=== PATIENT | female | born 1950 | race African-American/Black ===

== ENCOUNTER 2019-12-11 09:28 | Outpatient (CLI) | payer MEDICARE, SELFPAY ==
--- NOTE | 2019-12-11 10:00 | NEURO_ITS ---
Patient Number: [id number] Impression: # Complains of numbness of hands. # Bilateral ulnar neuropathy across the elbow. # Evolving Carpal Tunnel Syndrome. # Normal needle/EMG exam. Nerve Conduction Studies Anti Sensory Summary Table Stim Site NR Peak (ms) P-T Amp (?V) Site1 Site2 Delta-P (ms) Dist (cm) Francisco (m/s) Left Median Anti Sensory (2-3nd Digit) Wrist 3.4 7.2 Wrist 2-3nd Digit 3.4 14.0 41 Wrist 3.2 22.8 Wrist 2-3nd Digit 3.4 14.0 41 Right Median Anti Sensory (2-3nd Digit) Wrist 3.5 15.1 Wrist 2-3nd Digit 3.5 14.0 40 Wrist 3.6 24.9 Wrist 2-3nd Digit 3.5 14.0 40 Left Radial Anti Sensory (Base 1st Digit) Wrist 3.1 5.1 Wrist Base 1st Digit 3.1 0.0 Right Radial Anti Sensory (Base 1st Digit) Wrist 2.7 5.6 Wrist Base 1st Digit 2.7 0.0 Left Ulnar Anti Sensory (5th Digit) Wrist 2.9 22.1 Wrist 5th Digit 2.9 14.0 48 Right Ulnar Anti Sensory (5th Digit) Wrist 2.8 14.0 Wrist 5th Digit 2.8 14.0 50 Motor Summary Table Stim Site NR Onset (ms) O-P Amp (mV) Site1 Site2 Delta-0 (ms) Dist (cm) Francisco (m/s) Left Median Motor (Abd Poll Brev) Wrist 4.1 3.7 Elbow Wrist 5.1 31.0 61 Elbow 9.2 1.9 Right Median Motor (Abd Poll Brev) Wrist 4.1 3.6 Elbow Wrist 5.0 31.0 62 Elbow 9.1 2.2 Left Ulnar Motor (Abd Dig Minimi) Wrist 3.3 3.2 A Elbow Wrist 6.0 31.0 52 A Elbow 9.3 2.4 B Elbow Wrist 4.0 23.0 58 B Elbow 7.3 2.5 Right Ulnar Motor (Abd Dig Minimi) Wrist 3.3 3.2 A Elbow Wrist 6.1 32.0 52 A Elbow 9.4 2.2 B Elbow Wrist 4.3 22.0 51 B Elbow 7.6 2.0 F Wave Studies NR F-Lat (ms) L-R F-Lat (ms) Left Median (Mrkrs) (Abd Poll Brev) 29.67 0.72 Right Median (Mrkrs) (Abd Poll Brev) 28.95 0.72 Left Ulnar (Mrkrs) (Abd Dig Min) 29.87 1.86 Right Ulnar (Mrkrs) (Abd Dig Min) 28.01 1.86 EMG Side Muscle Nerve Root Ins Act Fibs Amp Dur Recrt Comment Right 1stDorInt Ulnar C8-T1 Nml Nml Nml Nml Nml Right Ext Indicis Radial (Post Int) C7-8 Nml Nml Nml Nml Nml Right Ext Digitorum Radial (Post Int) C7-8 Nml Nml Nml Nml Nml Right BrachioRad Radial C5-6 Nml Nml Nml Nml Nml Right PronatorTeres Median C6-7 Nml Nml Nml Nml Nml Right Abd Poll Brev Median C8-T1 Nml Nml Nml Nml Nml Left 1stDorInt Ulnar C8-T1 Nml Nml Nml Nml Nml Left Ext Indicis Radial (Post Int) C7-8 Nml Nml Nml Nml Nml Left Ext Digitorum Radial (Post Int) C7-8 Nml Nml Nml Nml Nml Left BrachioRad Radial C5-6 Nml Nml Nml Nml Nml Left PronatorTeres Median C6-7 Nml Nml Nml Nml Nml Left Abd Poll Brev Median C8-T1 Nml Nml Nml Nml Nml MTDD
== END 2019-12-11 09:29 | disposition home or self-care (01) ==
PROVIDERS: Visit Provider Orthopaedic Surgery
DX: G56.03 Carpal tunnel syndrome, bilateral upper limbs (principal); G56.23 Lesion of ulnar nerve, bilateral upper limbs
CPT/HCPCS: 95886; 95911

== ENCOUNTER 2020-02-11 00:11 | Outpatient (CLI) | payer MEDICARE, SELFPAY ==
[2020-02-11 17:33] LABS: SARS-CoV-2 RNA PCR Negative
== END 2020-02-11 00:12 | disposition home or self-care (01) ==
LOC: ANHCOVIDDT 00:12
PROVIDERS: Visit Provider Orthopaedic Surgery
DX: Z01.812 Encounter for preprocedural laboratory examination (principal); Z20.828 Contact with and (suspected) exposure to other viral communicable diseases
CPT/HCPCS: 87635; C9803; U0003

== ENCOUNTER 2020-02-13 00:26 | Day surgery (SDC) | payer MEDICARE, SELFPAY ==
[2020-02-05 14:23] VITALS: BMI 28.6
[2020-02-13] VITALS (10 sets, daily range): BP systolic 153–180; BP diastolic 73–101; PULSE 49–66; RESP 12–18; TEMP 36.2–36.9; O2SAT 99–100
--- NOTE | 2020-02-13 07:24 | WPDHPUPDATE1 ---
History and Physical Update Update Date/Time: 02/13/20 07:24 History and Physical has been reviewed, including an updated exam of the patient. There are NO changes in the patient's condition. Risks, benefits, and alternatives have been discussed and questions answered. Patient agrees to proceed with procedure.
--- NOTE | 2020-02-13 07:27 | PM.HPGS ---
History of Present Illness History of Present Illness Consent: Risks, benefits, and alternatives have been discussed and questions answered. Patient agrees to proceed with procedure. Chief complaint: left carpal and cubital tunnel synd, lt trigger Narrative: Donato Stauffer is a 69 year old female who complains of burning in the palm. Pain radiates proximally and distally into the hand. The left is much worse than the right. She has difficulty with functional activities including opening cans and caps. She is unable to make a fist on the left side due to triggering and stiffness in the fingers. Primarily the 3rd through 5th digits. She also has some cramping type pains in the hands and locking of the fingers. History of carpal tunnel release on the left several years ago with good result initially. She does wear a glove on the left hand for additional support. Review of Systems Constitutional: Constitutional: Denies fever(s) Cardiovascular: Cardiovascular: Denies dyspnea Respiratory: Respiratory: Denies cough and Denies dyspnea PMFSH Past Medical History Medical History Carpal tunnel syndrome on both sides Cubital tunnel syndrome of both upper extremities Trigger finger of both hands Surgical History Surgical History Status post total hip replacement, left Social History Social History Smoking status: Never smoker Alcohol intake: never Meds Home Medications and Allergies Home Medications Medication Instructions Recorded Confirmed Type amitriptyline 10 mg tablet 10 mg PO HS 10/08/19 02/05/20 History fluoxetine 40 mg capsule 40 mg PO DAILY 10/08/19 02/05/20 History gabapentin 400 mg capsule 400 mg PO TID 10/08/19 02/05/20 History hydrochlorothiazide 12.5 mg tablet 12.5 mg PO DAILY 10/08/19 02/05/20 History hydrocodone 10 mg-acetaminophen 1 tablet PO Q8H PRN 10/08/19 02/05/20 History 325 mg tablet latanoprost 0.005 % eye drops 1 drop EACH EYE HS 10/08/19 02/05/20 History metoprolol succinate 50 mg capsule 50 mg PO DAILY 10/08/19 02/05/20 History sprinkle, ext. release 24 hr montelukast 10 mg tablet 10 mg PO DAILY 10/08/19 02/05/20 History pantoprazole 40 mg tablet,delayed 40 mg PO QAM 10/08/19 02/05/20 History release potassium chloride 10 mEq 10 meq PO BID 10/08/19 02/05/20 History capsule,extended release promethazine 25 mg tablet 25 mg PO TID PRN 10/08/19 02/05/20 History cholecalciferol (vitamin D3) 125 mcg PO DAILY 02/05/20 02/05/20 History docusate sodium [Stool Softener] 50 mg PO DAILY 02/05/20 02/05/20 History pregabalin 50 mg PO BID 02/05/20 02/05/20 History simethicone [Gas Relief 125 mg PO DAILY 02/05/20 02/05/20 History (simethicone)] Allergies Allergy/AdvReac Type Severity Reaction Status Date / Time ibuprofen Allergy Unknown GI BLEED Verified 02/05/20 13:19 Latex, Natural Rubber Allergy Unknown SKIN Verified 02/05/20 13:19 IRRITATION morphine Allergy Unknown Hives Verified 02/05/20 13:18 METALS Allergy Severe SKIN Uncoded 02/05/20 13:19 IRRITATION Exam Narrative: Exam Narrative: The patient is in no distress. She is alert and oriented x3. The left hand shows no clinical deformity. Well-healed scar at the previous carpal tunnel site is slightly visible. Unable to make a complete fist on the left with significant stiffness in the 3rd through 5th digits. Most marked at the 3rd digit. No erythema. Definite synovitis not visualized. Right hand has a near full fist. Full extension. No definite deformity. Bilateral wrist motion near normal. I reviewed the EMG findings and nerve conduction study. I agree with the neurologist interpretation. She does show evolving carpal tunnel syndrome bilaterally as well as ulnar neuropathy at the elbow. Assessment and Plan Assessment and plan (1) [place]
[2020-02-13 08:51] LABS: Potassium 4.5 mmol/L (3.4-5.0)
[2020-02-13] MEDS: LACTATED RINGERS 1,000 ML 30 ML IV CONT ×2 (08:56→12:01)
--- NOTE | 2020-02-13 09:21 | WPDANESEPPF ---
Anes - Initial Pre Proc Eval Procedure: Operation Date: 02/13/20 10:00 Proposed Procedures p Left Carpal Tunnel Release, Left Cubital Tunnel Release - Jacob Mandujano MD s Trigger Finger Release Left Third, Fourth, Fifth Fingers - Jacob Mandujano MD Date/Time: 02/13/20 09:21 Surgeon: Jacob Mandujano MD Pre Op Diagnosis: left carpal and cubital tunnel synd, lt trigger Patient Data Age: 69 Gender: F Height: 5 ft 6.5 in Weight: 82.15 kg Last Vital Signs Temp 98.4 F 02/13/20 07:49 Pulse 57 L 02/13/20 07:49 Resp 18 02/13/20 07:49 BP 153/73 H 02/13/20 07:49 Pulse Ox 100 02/13/20 07:49 Allergies Allergy/AdvReac Type Severity Reaction Status Date / Time ibuprofen Allergy Unknown GI BLEED Verified 02/13/20 08:54 Latex, Natural Rubber Allergy Unknown SKIN Verified 02/13/20 08:54 IRRITATION morphine Allergy Unknown Hives Verified 02/13/20 08:54 METALS Allergy Severe SKIN Uncoded 02/13/20 08:54 IRRITATION Home Medications Medication Instructions Recorded Confirmed Type amitriptyline 10 mg tablet 10 mg PO HS 10/08/19 02/13/20 History fluoxetine 40 mg capsule 40 mg PO DAILY 10/08/19 02/13/20 History gabapentin 400 mg capsule 400 mg PO TID 10/08/19 02/13/20 History hydrochlorothiazide 12.5 mg tablet 12.5 mg PO DAILY 10/08/19 02/13/20 History hydrocodone 10 mg-acetaminophen 1 tablet PO Q8H PRN 10/08/19 02/13/20 History 325 mg tablet latanoprost 0.005 % eye drops 1 drop EACH EYE HS 10/08/19 02/13/20 History metoprolol succinate 50 mg capsule 50 mg PO DAILY 10/08/19 02/13/20 History sprinkle, ext. release 24 hr montelukast 10 mg tablet 10 mg PO DAILY 10/08/19 02/13/20 History pantoprazole 40 mg tablet,delayed 40 mg PO QAM 10/08/19 02/13/20 History release potassium chloride 10 mEq 10 meq PO BID 10/08/19 02/13/20 History capsule,extended release promethazine 25 mg tablet 25 mg PO TID PRN 10/08/19 02/13/20 History cholecalciferol (vitamin D3) 125 mcg PO DAILY 02/05/20 02/13/20 History docusate sodium [Stool Softener] 50 mg PO DAILY 02/05/20 02/13/20 History pregabalin 50 mg PO BID 02/05/20 02/13/20 History simethicone [Gas Relief 125 mg PO DAILY 02/05/20 02/13/20 History (simethicone)] Laboratory Tests 02/13/20 08:31 Potassium 4.5 mmol/L mmol/L (3.4-5.0) Patient hx anesthesia problems: none Family hx anesthesia problems: none [facility] Past Medical History Medical History (Updated 02/13/20 @ 09:21 by Lucas Snell MD) Carpal tunnel syndrome on both sides Cubital tunnel syndrome of both upper extremities CVA (cerebral vascular accident) no residual problems Deep vein thrombophlebitis of leg Pulmonary embolism Trigger finger of both hands Surgical History Surgical History Status post total hip replacement, left Social History Social History Smoking status: Never smoker Alcohol intake: never Anes - Eval Final PreProcedure Day of Procedure 02/13/20 09:21 Patient weight: normal Heart: regular rate and rhythm Lungs: clear to auscultation Airway: Mallampati scale class II Neurological: alert and oriented Last oral intake: >/= 8 hours ASA classification: III Emergent: no Anesthetic plan: proceed Anesthesia type and monitoring: general LMA and standard monitoring Informed Consent: The patient's anesthetic plan and its attendant risks and benefits were discussed with the patient/family/POA. Questions were solicited and answers provided to the satisfaction of the patient/family/POA.
[2020-02-13] MEDS: ceFAZolin 2 GM/D5W 50 ML 2 GM/50 ML BAG IVPB (10:07)
[2020-02-13] MEDS: BUPIVACAINE/EPINEPHRINE 0.5% 30 ML VIAL INFILTRATE (10:34)
--- NOTE | 2020-02-13 15:58 | PM.PROC ---
Procedure Note - Detailed Date of procedure: 02/13/20 Pre-op diagnosis: left carpal and cubital tunnel synd, lt trigger Post-op diagnosis: other (1. Left carpal tunnel syndrome. 2. Left ulnar neuropathy at the elbow. 3. Left trigger fingers 3rd 4th and 5th.) Procedure performed: 1. Left ulnar nerve subcutaneous transposition at the elbow. 2. Left carpal tunnel release. 3. Left hand trigger finger release digits 3 4 and 5. Description of procedure: The ulnar nerve was very unstable and was perched on the medial epicondyle. There was chronic inflammation and distortion of the shape of the nerve, somewhat flat. The tissues surrounding the nerve were modestly inflammatory. Subcutaneous transposition was performed and the nerve was very stable in the anterior soft tissue bed. A fascial sling was created. Anesthesia: MAC Surgeon: Jacob Mandujano MD Estimated blood loss (mL): 5 Drains: No Pathology: none sent Complications: None Condition: stable Findings: The upper extremity was prepped and draped in the usual sterile fashion. A well-padded tourniquet was placed high on the arm. The limb was exsanguinated and the tourniquet inflated to 250 mmHg. The proposed wrist incision was marked using typical anatomic landmarks. 4ML 0.5% Marcaine with epinephrine was injected along the incision line and at the distal forearm. A longitudinal incision was taken sharply. Dissection was brought down to the transverse carpal ligament. Under direct vision the ligament was incised sharply. The proximal release was carried out with dissection scissors. The contents of the carpal canal were protected with a Morgan elevator. The transverse carpal ligament was confirmed to be widely patent. Attention was turned to the trigger fingers. A transverse incision was created at the flexor tendon crease just proximal at the 3rd and 4th rays. Under direct vision the A1 gold was incised. The tendon was pulled from the wound and flexion was assessed. Release was carried out until the tendon passed freely without triggering. The 5th digit was also released with a separate incision. These transverse incisions were closed with interrupted 3 O Prolene suture. Attention was turned to the elbow. An incision was created along the posterior medial aspect of the elbow. Ulnar nerve was identified. It was subluxed and displaced onto the epicondyle. It was hyperemic and there was some inflammatory tissue chronically about the area. The nerve was carefully released proximally past the arcade of [place]. Distally the nerve was carefully released into the flexor carpi ulnaris. The 1st motor branch was carefully protected. Fascia at the medial intermuscular septum as well as distal fascia was carefully released as needed to allow the nerve to be transposed anteriorly without any evidence or risk of impingement. A fascial sling was created with 0 Vicryl suture at the medial epicondyle. A Morgan elevator was carefully passed along the nerve behind the fascial sling and the nerve was quite stable through a full range of motion without any evidence of kinking, or compression. The tourniquet was released. Hemostasis was obtained. The wrist and elbow wounds were closed with a horizontal mattress Prolene suture. The deep subcutaneous layer proximally was closed with interrupted 0 Vicryl suture and 3 0 Monocryl suture and 4 0 Monocryl suture. Xeroform was placed on the wounds. A sterile bulky dressing and posterior splint, incorporating the volar wrist, was applied. The patient was brought to the recovery room in stable condition. There were no complications.
== END 2020-02-13 14:25 | disposition home or self-care (01) ==
PROVIDERS: Anesthesiology; Visit Provider Orthopaedic Surgery
PROC: (CPT 64721; principal; 2020-02-13 10:00)
PROC: (CPT 26055; 2020-02-13 10:00)
DX: G56.02 Carpal tunnel syndrome, left upper limb (principal); G56.22 Lesion of ulnar nerve, left upper limb; M65.332 Trigger finger, left middle finger; M65.352 Trigger finger, left little finger; M65.342 Trigger finger, left ring finger; Z86.73 Personal history of transient ischemic attack (TIA), and cerebral infarction without residual deficits; Z86.711 Personal history of pulmonary embolism; Z86.718 Personal history of other venous thrombosis and embolism
CPT/HCPCS: 64721; 26055 ×3; 64718; 36415; 84132; A9270; J0131; J0690; J2250; J3010; J7120

== ENCOUNTER 2020-04-21 02:30 | Outpatient (CLI) | payer MEDICARE, SELFPAY ==
[2020-04-21 18:39] LABS: SARS-CoV-2 RNA PCR Negative
== END 2020-04-21 02:31 | disposition home or self-care (01) ==
LOC: ANHCOVIDDT 02:33
PROVIDERS: Visit Provider Orthopaedic Surgery
DX: Z01.812 Encounter for preprocedural laboratory examination (principal); Z20.828 Contact with and (suspected) exposure to other viral communicable diseases
CPT/HCPCS: 87635; C9803; U0003

== ENCOUNTER 2020-04-23 00:03 | Day surgery (SDC) | payer MEDICARE, SELFPAY ==
[2020-04-08 15:38] VITALS: BMI 28.6
--- NOTE | 2020-04-08 15:43 | PC.NURSE ---
PT STATES NO CHANGE IN HEALTH HX SINCE INTERVIEW ON 02/05/20
[2020-04-23] VITALS (13 sets, daily range): BP systolic 121–154; BP diastolic 62–99; PULSE 57–88; RESP 12–16; TEMP 36.6–36.9; O2SAT 96–100
[2020-04-23] MEDS: ACETAMINOPHEN 500 MG TABLET 1000 MG PO (06:18)
[2020-04-23] MEDS: LACTATED RINGERS 1,000 ML 30 ML IV CONT ×2 (06:38→09:04)
--- NOTE | 2020-04-23 07:09 | WPDANESEPPF ---
Anes - Initial Pre Proc Eval Procedure: Operation Date: 04/23/20 07:30 Proposed Procedures p Right Carpal Tunnel Release And Right Cubital Tunnel Release - Jacob Mandujano MD Date/Time: 04/23/20 07:09 Surgeon: Jacob Mandujano MD Pre Op Diagnosis: rt carpal tunnel, ulnar nerve neuropathy Patient Data Age: 70 Gender: F Height: 5 ft 6.5 in Weight: 84.1 kg Last Vital Signs Temp 36.9 C 04/23/20 06:41 Pulse 57 L 04/23/20 06:41 Resp 16 04/23/20 06:41 BP 121/62 04/23/20 06:41 Pulse Ox 100 04/23/20 06:41 Allergies Allergy/AdvReac Type Severity Reaction Status Date / Time ibuprofen Allergy Intermediate GI BLEED Verified 04/23/20 06:07 Latex, Natural Rubber Allergy Unknown SKIN Verified 04/08/20 15:12 IRRITATION morphine Allergy Unknown Hives Verified 04/08/20 15:12 METALS Allergy Severe SKIN Uncoded 04/08/20 15:12 IRRITATION Home Medications Medication Instructions Recorded Confirmed Type amitriptyline 10 mg tablet 10 mg PO HS 10/08/19 04/23/20 History fluoxetine 40 mg capsule 40 mg PO DAILY 10/08/19 04/23/20 History gabapentin 400 mg capsule 400 mg PO TID 10/08/19 04/23/20 History latanoprost 0.005 % eye drops 1 drop EACH EYE HS 10/08/19 04/23/20 History metoprolol succinate 50 mg capsule 50 mg PO DAILY 10/08/19 04/23/20 History sprinkle, ext. release 24 hr montelukast 10 mg tablet 10 mg PO DAILY 10/08/19 04/23/20 History pantoprazole 40 mg tablet,delayed 40 mg PO QAM 10/08/19 04/23/20 History release promethazine 25 mg tablet 25 mg PO TID PRN 10/08/19 04/23/20 History Stool Softener 50 mg PO DAILY 02/05/20 04/23/20 History cholecalciferol (vitamin D3) 125 mcg PO DAILY 02/05/20 04/23/20 History simethicone [Gas Relief 125 mg PO DAILY 02/05/20 04/23/20 History (simethicone)] hydrocodone-acetaminophen 1 tablet PO Q8H PRN #30 tablet 02/13/20 04/23/20 Rx magnesium 200 mg PO BID 04/08/20 04/23/20 History meloxicam 7.5 mg PO BID 04/08/20 04/23/20 History Patient hx anesthesia problems: none Family hx anesthesia problems: none PMFSH Past Medical History Medical History Aftercare following surgery Carpal tunnel syndrome on both sides Cubital tunnel syndrome of both upper extremities CVA (cerebral vascular accident) no residual problems Deep vein thrombophlebitis of leg Pulmonary embolism Trigger finger of both hands Surgical History Surgical History Status post total hip replacement, left Social History Social History Smoking status: Never smoker Alcohol intake: never Living arrangements: alone Spiritual care concerns: No Anes - Eval Final PreProcedure Day of Procedure 04/23/20 07:09 Patient weight: overweight Heart: regular rate and rhythm Lungs: clear to auscultation Airway: Mallampati scale class II Neurological: lethargic Last oral intake: >/= 8 hours ASA classification: III Emergent: no Anesthetic plan: proceed Anesthesia type and monitoring: general GIVS and standard monitoring Informed Consent: The patient's anesthetic plan and its attendant risks and benefits were discussed with the patient/family/POA. Questions were solicited and answers provided to the satisfaction of the patient/family/POA.
--- NOTE | 2020-04-23 07:13 | WPDHPUPDATE1 ---
History and Physical Update Update Date/Time: 04/23/20 07:13 History and Physical has been reviewed, including an updated exam of the patient. There are NO changes in the patient's condition. Risks, benefits, and alternatives have been discussed and questions answered. Patient agrees to proceed with procedure.
[2020-04-23] MEDS: ceFAZolin 2 GM/D5W 50 ML 2 GM/50 ML BAG IVPB (07:26)
[2020-04-23] MEDS: BUPIVACAINE/EPINEPHRINE 0.5% 30 ML VIAL INFILTRATE (07:44)
--- NOTE | 2020-04-23 16:22 | P.OP_ITS ---
Procedure Note - Detailed Date of procedure: 04/23/20 Pre-op diagnosis: rt carpal tunnel, ulnar nerve neuropathy Post-op diagnosis: same Procedure performed: 1. Carpal Tunnel Release 2. Ulnar nerve subcutaneous transposition at the elbow. Description of procedure: Anesthesia: MAC Surgeon: Jacob Mandujano MD Estimated blood loss (mL): 5 Complications: None Condition: stable Findings: Operative details. After sedation was administer, the hand was prepped and draped in the usual sterile fashion. The proposed incision was marked using typical anatomic landmarks. 4ML 0.5% Marcaine with epinephrine was injected along the incision line and at the distal forearm. The limb was exsanguinated and the tourniquet inflated to 250 millimeters of mercury. A longitudinal incision was taken sharply. Dissection was brought down to the transverse carpal ligament. Under direct vision the ligament was incised sharply. The proximal release was carried out with dissection scissors. The contents of the carpal canal were protected with a [place] elevator. The transverse carpal ligament was confirmed to be widely patent. Attention was turned to the elbow. A longitudinal incision was created posterior to the medial epicondyle. Careful dissection was brought down to the ulnar nerve. It was identified proximally and dissected to the cubital tunnel retinaculum. Careful dissection released the cubital tunnel retinaculum. The dissection was carried out to the flexor carpi the palmaris. The 1st motor branch was carefully identified and protected. Attention was turned proximally in the nerve was released proximal to the intermuscular septum. The arm was flexed and the nerve was assessed. At this point the nerve was found to be unstable. It was elected to proceed with a subcutaneous transposition. After adequate release was confirmed proximally and distally, the nerve was carefully moved anterior. The intermuscular septum was carefully released and cauterized prior to moving the nerve. The course of the nerve was very nice without evidence of compression or instability. A fascial sling was created at the medial epicondyle with three 0 Vicryl sutures. The soft tissue envelope was ideal for the procedure. The tourniquet was released to assure that there was no significant bleeding. Meticulous hemostasis was maintained. The subcutaneous tissues were closed with 2-0 Vicryl suture. The skin was closed with interrup rajwinder 3-0 Monocryl suture followed by running 4-0 Monocryl suture and Steri- Strips. Sterile dressing was applied with a soft splint at the wrist and a hard splint at the elbow. The patient was extubated and brought to the recovery room in stable condition.
== END 2020-04-23 12:50 | disposition home or self-care (01) ==
PROVIDERS: Visit Provider Orthopaedic Surgery
PROC: (CPT 64721; principal; 2020-04-23 07:30)
DX: G56.01 Carpal tunnel syndrome, right upper limb (principal); G56.21 Lesion of ulnar nerve, right upper limb; Z86.73 Personal history of transient ischemic attack (TIA), and cerebral infarction without residual deficits; Z86.711 Personal history of pulmonary embolism
CPT/HCPCS: 64721; 64718; A4565; A9270; J0690; J1100; J2250; J2405; J2704; J7120

== ENCOUNTER 2021-09-26 13:16 | Outpatient (CLI) | payer MEDICARE, SELFPAY ==
--- NOTE | ~2021-09-26 | MR_ITS ---
EXAMINATION: MR lumbar spine wo con DATE: 09/26/2021 15:04 INDICATION: Low back pain, unspecified. TECHNIQUE: Magnetic resonance imaging (MRI) of the lumbar spine was performed without intravenous con trast. Sequences included sagittal T2-weighted FSE, sagittal STIR FSE, sagittal T1-weighted FSE, and axial T2-weighted FSE. COMPARISON: None FINDINGS: There is a transitional segment at lumbosacral junction that is designated L5. There is 17 degrees dextroscoliosis of thoracolumbar spine. There is 6 mm anterolisthesis of L4 on L5. There is m oderately decreased disc height at T12-L1 and severely decreased disc height from L1-L2 through L4-L5 with endplate remodeling. The distal spinal cord signal intensity is normal. The conus medullaris is at L1-L2. The following disc levels are specifically discussed: L1-L2: The disc is bulging. There is severe bilateral facet joint osteoarthritis. There is mild bilat eral neural foraminal stenosis. There is mild central canal stenosis. L2-L3: The disc is bulging and has an annular fissure. There is severe bilateral facet joint osteoart hritis. There is moderate bilateral neural foraminal stenosis. There is moderate central canal stenos is. There is asymmetric severe stenosis of left lateral recess. L3-L4: The disc is bulging and has an annular fissure. There is severe bilateral facet joint osteoart hritis. There is moderate right and mild left neural foraminal stenosis. There is mild central canal stenosis. L4-L5: The disc is bulging and has an annular fissure. There is severe left facet joint osteoarthriti s. There is ankylosis of right facet joint with severe hypertrophy. There is a chronic right L4 pars defect. There is moderate right and mild left neural foraminal stenosis. There is mild central canal stenosis. L5-S1: The disc does not extend beyond the endplate margin. There is moderate bilateral facet joint o steoarthritis. There is mild right neural foraminal stenosis. There is no central canal stenosis. IMPRESSION: 1. Severe lumbar spondylosis. 2. Thoracolumbar dextroscoliosis. 3. Chronic right L4 pars defect. Reviewed, dictated and finalized at location A. [facility] HEAD
== END 2021-09-26 13:17 | disposition home or self-care (01) ==
LOC: ANHIMG 13:21
PROVIDERS: Visit Provider Orthopaedic Surgery
DX: M54.50 Low back pain, unspecified (principal); M47.816 Spondylosis without myelopathy or radiculopathy, lumbar region; M41.85 Other forms of scoliosis, thoracolumbar region; M53.86 Other specified dorsopathies, lumbar region
CPT/HCPCS: 72148